=== PATIENT | female | born 2000 | race Caucasian/White ===

== ENCOUNTER 2018-10-27 13:45 | Emergency (ER) | payer OTHER ==
[~2018-10-27] VITALS: Ht 162.6 cm; Wt 49.0 kg
[2018-10-27 13:59] VITALS: BP 133/64; Ht 162.6 cm; Wt 49.0 kg
== END 2018-10-27 15:03 | disposition left against medical advice (07) ==
LOC: ED 13:45
DX: Z53.21 Procedure and treatment not carried out due to patient leaving prior to being seen by health care provider (principal)